=== PATIENT | female | born 1945 | race Caucasian/White ===

== ENCOUNTER 2022-03-10 17:15 | Inpatient (IN) | payer BC ==
[~2022-03-10] VITALS: Ht 160 cm; Wt 98.9 kg
[2022-03-10] MEDS ORDERED: IV NORMAL SALINE 1000 ML BAG IV ONE (17:30)
[2022-03-10 17:31] LABS: *BILIRUBIN,URIN NEGATIVE (NEGATIVE); *BLOOD, URINE NEGATIVE (NEGATIVE); *CLARITY,URINE CLEAR (CLEAR); *COLOR,URINE YELLOW (YELLOW); *KETONES,URINE NEGATIVE (NEGATIVE); LEUKOCYTE ESTERASE ,URINE TRACE (NEGATIVE); NITRITE, URINE NEGATIVE (NEGATIVE); PH,URINE 6.5 (5.0-8.0); UGLUCOSE NEGATIVE (NEGATIVE)
[2022-03-10 17:44] LABS: HEMATOCRIT 44.4 % (31.2-41.9); MEAN CORPUSCULAR HEMOGLOBIN 31.9 uug (24.7-32.8); PLATELET COUNT (AUTO) 172 K/uL (179-408)
[2022-03-10] MEDS ORDERED: predniSONE 20 MG TABLET PO ONE (17:45)
[2022-03-10] MEDS ORDERED: IPRATROPIUM BROMIDE 0.5 MG/2.5 ML NEBU NEB ONE (17:45)
[2022-03-10] MEDS ORDERED: ALBUTEROL SULFATE 2.5 MG/3 ML NEBU NEB ONE (17:45)
[2022-03-10] MEDS ORDERED: ALBUTEROL SULFATE 2.5 MG/3 ML NEBU ONE ×2 (17:47)
[2022-03-10] MEDS ORDERED: IPRATROPIUM BROMIDE 0.5 MG/2.5 ML NEBU ONE (17:47)
[2022-03-10 17:51] LABS: CARBON DIOXIDE 27 mmol/L (21-32); CHLORIDE 100 mmol/L (98-107); CREATININE 0.9 mg/dL (0.6-1.3); GLUCOSE 103 mg/dL (74-106); POTASSIUM 4.4 mmol/L (3.5-5.1); UREA NITROGEN, BLOOD 17 mg/dL (7-18)
[2022-03-10] MEDS ORDERED: CEFTRIAXONE 1 G in IV DEXTROSE 5% 50 ML IV ONE (18:00)
[2022-03-10 18:01] LABS: ALANINE AMINOTRANSFERASE 26 U/L (14-59); ALKALINE PHOSPHATASE 88 U/L (50-136); ASPARTATE AMINOTRANSFERASE 25 U/L (15-37); BILIRUBIN,DIRECT 0.2 mg/dL (0.0-0.2); BILIRUBIN,TOTAL 0.5 mg/dL (0.2-1.0); LIPASE 71 U/L (73-393); TOTAL PROTEIN, SERUM 7.4 g/dL (6.4-8.2)
[2022-03-10 18:10] LABS: ABG BASE EXCESS 0.3 mmol/L; ABG HCO3 22.7 mmol/L; ABG PCO2 31.3 mmHg (35.0-45.0); ABG PH 7.479 (7.350-7.450); ABG PO2 133.5 mmHg (75.0-100.0); ABG SITE RIGHT BRACHIAL; ABG TOTAL HEMOGLOBIN 16.1 G/dL (12.0-16.0); COHb 0.7 % (0.5-1.5); MetHb 0.2 % (0.0-1.5)
[2022-03-10] MEDS ORDERED: diphenhydrAMINE 25 MG/10 ML UDC ONE (18:14)
[2022-03-10] MEDS ORDERED: diphenhydrAMINE 50 MG/1 ML VIAL ONE (18:15)
[2022-03-10] MEDS ORDERED: DOXYCYCLINE HYCLATE IV 100 MG in IV DEXTROSE 5% 250 ML IV ONE (18:15)
[2022-03-10] MEDS ORDERED: diphenhydrAMINE 50 MG/1 ML VIAL IM ONE (18:15)
[2022-03-10] MEDS ORDERED: MORPHINE SULFATE 2 MG/1 ML DISP.SYRIN ONE (18:25)
[2022-03-10] MEDS ORDERED: MORPHINE SULFATE 2 MG/1 ML DISP.SYRIN IV ONE (18:30)
[2022-03-10 18:35] LABS: RBC,URINE 0-3 /HPF (0-3)
[2022-03-10 18:36] LABS: BACTERIA,URINE RARE /HPF (NONE SEEN); SQUAMOUS EPITHELIAL CELL,UR FEW /HPF (NONE SEEN)
[2022-03-10] MEDS ORDERED: methylPREDNISolone SOD SUCC 125 MG/2 ML VIAL IV ONE (18:45)
[2022-03-10] MEDS ORDERED: CEFTRIAXONE /D5W 50ML IVPB **ER PYXIS IV ONE (18:46)
[2022-03-10] MEDS ORDERED: methylPREDNISolone SOD SUCC 125 MG/2 ML VIAL ONE (18:46)
[2022-03-10] MEDS ORDERED: FLEET ENEMA 133 ML BOTTLE RC PRN (19:00)
[2022-03-10] MEDS ORDERED: MAGNESIUM HYDROXIDE 30 ML LIQUID UDC PO PRN (19:00)
[2022-03-10] MEDS ORDERED: ENOXAPARIN SODIUM 40 MG/0.4 ML DISP.SYRIN SQ SCH (19:00)
[2022-03-10] MEDS: levoFLOXacin 750MG/D5W 750 MG in PREMIXED 1 EACH IV SCH (19:00)
[2022-03-10] MEDS ORDERED: ACETAMINOPHEN 325 MG TABLET PO PRN (19:00)
[2022-03-10] MEDS ORDERED: ONDANSETRON 4 MG/2 ML VIAL IV PRN (19:00)
[2022-03-10] MEDS ORDERED: MAGNESIUM HYDROXIDE 30 ML LIQUID UDC PO ONE (19:00)
[2022-03-10] MEDS ORDERED: REMEDY ESSENTIAL ZINC PASTE 113 GM TP PRN (19:00)
[2022-03-10] MEDS ORDERED: DEXTROSE 50% 50 ML DISP.SYRIN IV PRN (19:00)
--- NOTE | 2022-03-10 19:05 | NUR ---
Received thorough report from SHRAVAN Sarmiento RN using SBAR method at bedside. Met pt and introduced myself, quick assessment taken. Pt has bilat 2+pitting pedal edema. Pt slightly hypotensive, but asymptomatic. [address] at 101 without ectopy. RRR. Pt appears mildly to moderately confused. Pt knows her name but does not know the name of hospital, name of the president, or the date. Pt is one medical restraints for she has a tendency to jump out of bed and start walking around. Pt is otherwise very pleasant pt albeit confused and slightly altered. VSS, PE WNL. Pt complaining of mild to mod chronic pain in bilat toes. EDMD informed. Pt denies any sob or discomfort currently. states that she is mildly dizzy and nauseated. Barf bad provided. Nausea seemed to subside.
--- NOTE | 2022-03-10 19:14 | NUR ---
Nursing SBAR given to screen handler Deandra. Patient is for CT scan, another IV antibiotic medicine and telemetry bed/nurse when all results are back.
--- NOTE | 2022-03-10 19:18 | NUR ---
Pt out of ER for CT.
[2022-03-10] MEDS ORDERED: CLOT15CR27 TP (19:32)
[2022-03-10] MEDS ORDERED: UMEC1BLS IH (19:32)
[2022-03-10] MEDS ORDERED: ZINC56.713 TP (19:32)
[2022-03-10] MEDS ORDERED: ONDA-104 PO (19:32)
[2022-03-10] MEDS ORDERED: FOLI1TAB94 PO (19:32)
[2022-03-10] MEDS ORDERED: CALCIUM C (19:32)
[2022-03-10] MEDS ORDERED: LEVO125T8 PO (19:32)
[2022-03-10] MEDS ORDERED: PRAV20TA4 PO (19:32)
[2022-03-10] MEDS ORDERED: CLOP75TA15 PO (19:32)
[2022-03-10] MEDS ORDERED: DICY20TA11 PO (19:32)
[2022-03-10] MEDS ORDERED: CHOLECALCIFEROL PO (19:32)
[2022-03-10] MEDS ORDERED: SENN-261 PO (19:32)
[2022-03-10] MEDS ORDERED: CALCIUM CARBONATE PO (19:32)
[2022-03-10] MEDS ORDERED: CARB30DR EACHEYE (19:32)
[2022-03-10] MEDS ORDERED: ASPI81TA31 PO (19:32)
[2022-03-10] MEDS ORDERED: ENAL-80 PO (19:32)
[2022-03-10] MEDS ORDERED: B COMPLEX BIOTIN FA PO (19:32)
[2022-03-10] MEDS ORDERED: ACET-2154 PO (19:32)
[2022-03-10] MEDS ORDERED: TRAZ-182 PO (19:32)
[2022-03-10] MEDS ORDERED: ALBU8.5H8 INH (19:32)
[2022-03-10] MEDS ORDERED: GABA-532 PO ×2 (19:32)
[2022-03-10] MEDS ORDERED: MEMA10TA PO (19:32)
[2022-03-10] MEDS ORDERED: LORA10TA7 PO (19:32)
--- NOTE | 2022-03-10 19:51 | NUR ---
Pt back to ER from CT.
--- NOTE | 2022-03-10 19:52 | NUR ---
Ultrasound at bedside.
[2022-03-10] MEDS ORDERED: DICYCLOMINE HCL 20 MG TABLET PO PRN (20:15)
[2022-03-10] MEDS ORDERED: CLOTRIMAZOLE 1% CREAM 30 GM TUBE TP PRN (20:15)
[2022-03-10] MEDS ORDERED: SENNOSIDES 1 TABLET PO PRN (20:15)
[2022-03-10] MEDS ORDERED: TRAZODONE 50 MG TABLET PO PRN (20:15)
[2022-03-10] MEDS ORDERED: ACETAMINOPHEN 325 MG TABLET-SA PATIENTS-PAIN ONLY PO PRN (20:15)
[2022-03-10] MEDS ORDERED: LORATADINE 10 MG TABLET PO PRN (20:15)
[2022-03-10] MEDS ORDERED: GABAPENTIN 300 MG CAPSULE ONE (20:40)
[2022-03-10] MEDS ORDERED: levoFLOXacin 750MG/D5W 150 ML IV ONE (20:41)
[2022-03-10] MEDS: DOXYCYCLINE HYCLATE 100 MG TABLET PO SCH (21:00)
[2022-03-10] MEDS: BLOOD SUGAR DIAGNOSTIC 1 EACH STRIP VI SCH (21:00)
[2022-03-10] MEDS ORDERED: GABAPENTIN 100 MG CAPSULE PO SCH (21:00)
[2022-03-10] MEDS ORDERED: methylPREDNISolone SOD SUCC 40 MG/ML VIAL IV SCH (22:00)
--- NOTE | 2022-03-10 22:46 | NUR ---
All evening meds administered in timely fashion, pt tolerated well. No s/sx of reaction noted. Pt is resting comfortably on gurney, bed dropped, rails up, all needs med, pt knows that she can simply call and ill here her. Pt appears to be alot less anxious and more relaxed since first arrized.
--- NOTE | 2022-03-10 23:16 | NUR ---
20g angio inserted into Lt AC on first attempt, without difficulty, per CTA tech. business services tech informed, he is on his way to picker packer pt for exam.
[2022-03-10] MEDS ORDERED: SWABABLE VALVE TRANSFER SET EA MC ONE (23:19)
[2022-03-10] MEDS ORDERED: IOHEXOL 350 100 ML INFUS..BTL ONE (23:19)
[2022-03-10] MEDS ORDERED: IV NORMAL SALINE 250 ML IV ONE (23:19)
--- NOTE | 2022-03-10 23:49 | NUR ---
Pt taken to bathroom via wc and voided approx 200cc clear darkish yellow output. Pt signed CTA contrast consent and taken to XR by mosaic technician for CTA. Pt was fairly stable on feet but some does need to be standing by for she is very clumsy and accident prone. Pt walked from wc to toilet without difficulty. pt currently in xr for dx exam.
[2022-03-11] MEDS ORDERED: IPRATROPIUM BROMIDE 0.5 MG/2.5 ML NEBU NEB SCH
[2022-03-11] MEDS ORDERED: ALBUTEROL SULFATE 2.5 MG/3 ML NEBU NEB SCH
--- NOTE | 2022-03-11 03:24 | NUR ---
Pt sleeping soundly, with audible snoring. vss. 79/58, 98% NC2L, 16rpm, 92bpm,
--- NOTE | 2022-03-11 04:06 | NUR ---
Brennen Zhao called to give report on pt going to [address]. Shannon jimenez Addendum: 03/11/22 at 0407 by FAMILIA Pt to be picked up by Amjaent jimenez at 0530. Pt is sleeping soundly in pos of comfort with audible snoring.
--- NOTE | 2022-03-11 04:40 | NUR ---
First call placed to tele to give report and move pt up. Accepting RN said she is currently tieing some loose end and she will call me when she is free. I will wait 20-30 min then will placed second call to tele.
[2022-03-11] MEDS ORDERED: ALBUTEROL SULFATE 2.5 MG/3 ML NEBU NEB PRN (04:45)
[2022-03-11] MEDS ORDERED: CALCIUM CARBONATE 500 MG TAB.CHEW PO PRN (05:00)
[2022-03-11] MEDS ORDERED: POLYVINYL ALCOHOL OPHT DROPS 15 ML BOTTLE OP PRN (05:00)
--- NOTE | 2022-03-11 05:07 | NUR ---
Pt is sleeping soundly with audible snoring, in pos of comfort. VSS, NAD. I am attempting to get pt transfering upstairs within the next hour or so. 78/62, 95% RA, 98bpm,16 rpm. Pt states that her BP normally runs low and that is normal for her, her PMD is aware. [facility] will be arriving shortly to tranport pt to [facility], Nurse Boston accepting. Thorough report already given to Boston RN, using SBAR method. All questions answered, Nurse Mead gave green light to tranfer pt. Currently waiting on transport to arrive. Radiology CD copied along with summury report and placed in pt folder. Pt loaded up and prepared for tranfer. VSVenancio, Pt in good spirits, very thankful for services rendered. No s/sxof distress present.
--- NOTE | 2022-03-11 05:45 | NUR ---
Pt gotten up and asisted to bathroom and voided large amt of clear yellow output. Pt escorted back to bed and placed in pos of comfort.
[2022-03-11] MEDS ORDERED: TRAZODONE 50 MG TABLET PO PRN (05:46)
[2022-03-11] MEDS ORDERED: POLYVINYL ALCOHOL OPHT DROPS 15 ML BOTTLE EACHEYE PRN (06:00)
[2022-03-11] MEDS ORDERED: CLOTRIMAZOLE 1% CREAM 30 GM TUBE TP PRN (06:00)
--- NOTE | 2022-03-11 06:24 | NUR ---
thorough Report just given to tele primer charger using sbar method. All questions answered. Given green light to transport pt to 3rd floor. Pt aaox3, in good spirits, VSS, PE wnl, NAD. No s/sxof distress present. Pt transfered to 316 without difficulty or incident. Ensured pt is settled in before departing. BOTTOM BUFFER at bedside for intake.
[2022-03-11 07:00] VITALS: BP 114/62
--- NOTE | 2022-03-11 07:00 | NUR ---
RECEIVED PATIENT FOR ADMISSION 76 YEARS OLD FEMALE BY [facility] TO ROOM 316 WITH DX OF SOB/UTI PLACED INTO BED FIXED AND MADE COMFORTABLE.PATIENT IS ALERT AND VERBALLY RESPONSIVE SHE IS FORGETFUL DENIES PAIN OR DISCOMFORTS .ON O2 AT 2L/M BY NASAL CANULA WITH NO SOB AT THIS TIME.CALL LIGHTS AND PERSONAL BELONGINGS ARE WITHIN EASY REACH WILL CONTINUE TO OBSERVE.
[2022-03-11] MEDS ORDERED: FLEET ENEMA 133 ML BOTTLE RC PRN (07:10)
[2022-03-11] MEDS: BLOOD SUGAR DIAGNOSTIC 1 EACH STRIP VI SCH ×4 (07:30→21:01)
[2022-03-11] MEDS: IPRATROPIUM BROMIDE 0.5 MG/2.5 ML NEBU NEB SCH ×3 (08:08→21:01)
[2022-03-11] MEDS: ALBUTEROL SULFATE 2.5 MG/3 ML NEBU NEB SCH ×3 (08:08→21:01)
--- NOTE | 2022-03-11 08:30 | NUR ---
PATIENT REFUSED TO HAVE BLOOD SUGAR CHECKED STATED THAT SHE IS NOT DIABETIC DR SUN CALLED AND NOTIFIED VIA A VOICE MAIL MESSAGE AWAITING FOR RETURN CALL.
[2022-03-11] MEDS: ENALAPRIL 10 MG TABLET PO SCH (09:00)
[2022-03-11] MEDS: MEMANTINE HCL 10 MG TABLET PO SCH ×2 (09:09→16:48)
[2022-03-11] MEDS: ASPIRIN 81 MG TAB.CHEW PO SCH (09:09)
[2022-03-11] MEDS: CLOPIDOGREL 75 MG TABLET PO SCH (09:09)
[2022-03-11] MEDS: CHOLECALCIFEROL 1,000 UNIT TABLET PO SCH (09:10)
[2022-03-11] MEDS: VITAMIN B COMPLEX 1 TABLET PO SCH (09:11)
[2022-03-11] MEDS: FOLIC ACID 1 MG TABLET PO SCH (09:14)
[2022-03-11] MEDS: DOXYCYCLINE HYCLATE 100 MG TABLET PO SCH ×2 (09:15→16:58)
[2022-03-11] MEDS: GABAPENTIN 100 MG CAPSULE PO SCH ×2 (09:15→16:48)
[2022-03-11] MEDS: methylPREDNISolone SOD SUCC 125 MG/2 ML VIAL IV SCH ×3 (09:17→21:02)
[2022-03-11] MEDS: LEVOTHYROXINE SODIUM 125 MCG TABLET PO SCH (09:20)
--- NOTE | 2022-03-11 10:30 | NUR ---
DR LUCIE SUN RETURNED CALL STATED THAT EVEN THOUGH PATIENT IS NOT DIABETIC SHE IS TAKING SOLU MEDROL WHICH WILL RAISE HER BLOOD SUGAR PATIENT NOTIFIED AND SHE STATED OKAY.
[2022-03-11 10:37] LABS: HEMATOCRIT 41.9 % (31.2-41.9); MEAN CORPUSCULAR HEMOGLOBIN 31.6 uug (24.7-32.8); MEAN CORPUSCULAR VOLUME 93.8 fL (75.5-95.3); PLATELET COUNT (AUTO) 135 K/uL (179-408)
[2022-03-11 10:44] LABS: MAGNESIUM 2.1 mg/dL (1.8-2.4); PHOSPHOROUS 3.5 mg/dL (2.5-4.9); POTASSIUM 3.7 mmol/L (3.5-5.1)
[2022-03-11 11:30] VITALS: BP 95/60
--- NOTE | 2022-03-11 11:30 | NUR ---
POOR VEINOUS ACESS MULTIPLE ATTEMPTS DR SUN NOTIFIED WITH ORDER TO INSERT MIDLINE AND NOTED.
[2022-03-11] MEDS: INSULIN REGULAR, HUMAN 300 UNIT/3 ML VIAL SQ PRN ×2 (12:03→16:59)
[2022-03-11] MEDS: FLUTICASONE/VILANTEROL 1 EACH BLST.W.DEV INH SCH (12:48)
[2022-03-11 16:00] VITALS: BP 104/71
--- NOTE | 2022-03-11 18:00 | NUR ---
MID LINE RIGHT UPPER ARM IS PATENT AND INTACT AT THIS TIME
--- NOTE | 2022-03-11 19:30 | NUR ---
Received pt awake, alert and orientex4. Pt in no acute distress.Pt on sinus rhythm. Iv intact. Pt on room air. . Safety and comfort provided. Will continue to monitor.
[2022-03-11] MEDS: levoFLOXacin 750MG/D5W 750 MG in PREMIXED 1 EACH IV SCH (19:54)
[2022-03-11 20:00] VITALS: BP 98/69
[2022-03-11] MEDS: ATORVASTATIN 10 MG TABLET PO SCH (20:48)
[2022-03-11] MEDS: GABAPENTIN 300 MG CAPSULE PO SCH (20:48)
[2022-03-11] MEDS: ENOXAPARIN SODIUM 40 MG/0.4 ML DISP.SYRIN SQ SCH (20:49)
[2022-03-11] MEDS: INSULIN REGULAR, HUMAN 300 UNITS/3 ML VIAL SQ PRN (20:52)
[2022-03-11] MEDS: REMEDY ESSENTIAL ZINC PASTE 113 GM TOP SCH (21:02)
[2022-03-11 22:42] VITALS: BP 98/69
[2022-03-12] VITALS: BP 101/66
[2022-03-12] MEDS: ALBUTEROL SULFATE 2.5 MG/3 ML NEBU NEB SCH ×4 (01:01→21:14)
[2022-03-12] MEDS: IPRATROPIUM BROMIDE 0.5 MG/2.5 ML NEBU NEB SCH ×4 (01:01→21:14)
[2022-03-12 04:00] VITALS: BP 101/66
[2022-03-12] MEDS: methylPREDNISolone SOD SUCC 125 MG/2 ML VIAL IV SCH ×3 (05:47→22:21)
[2022-03-12] MEDS: LEVOTHYROXINE SODIUM 125 MCG TABLET PO SCH (06:12)
[2022-03-12 06:17] LABS: MEAN CORPUSCULAR HEMOGLOBIN 32.3 uug (24.7-32.8); MEAN CORPUSCULAR VOLUME 93.6 fL (75.5-95.3); PLATELET COUNT (AUTO) 128 K/uL (179-408)
[2022-03-12 06:23] LABS: CREATININE 0.9 mg/dL (0.6-1.3); POTASSIUM 4.1 mmol/L (3.5-5.1)
--- NOTE | 2022-03-12 06:27 | NUR ---
Pt slept comfortably. Pt in no acute distress. Pt on sinus rhythm. Pt prescribed medication given and pt tolerated it well.All needs are met. Pt stable. Safety and comfort provided. Will continue to endorse to incoming nurse for continuity ofcare.
[2022-03-12] MEDS: BLOOD SUGAR DIAGNOSTIC 1 EACH STRIP VI SCH ×4 (06:39→20:38)
[2022-03-12] MEDS: INSULIN REGULAR, HUMAN 300 UNIT/3 ML VIAL SQ PRN (08:11)
[2022-03-12] MEDS: MEMANTINE HCL 10 MG TABLET PO SCH ×2 (08:12→16:35)
[2022-03-12] MEDS: GABAPENTIN 100 MG CAPSULE PO SCH ×2 (08:12→16:34)
[2022-03-12] MEDS: CHOLECALCIFEROL 1,000 UNIT TABLET PO SCH (08:12)
[2022-03-12] MEDS: ASPIRIN 81 MG TAB.CHEW PO SCH (08:12)
[2022-03-12] MEDS: FOLIC ACID 1 MG TABLET PO SCH (08:12)
[2022-03-12] MEDS: VITAMIN B COMPLEX 1 TABLET PO SCH (08:13)
[2022-03-12] MEDS: FLUTICASONE/VILANTEROL 1 EACH BLST.W.DEV INH SCH (08:13)
[2022-03-12] MEDS: ENALAPRIL 10 MG TABLET PO SCH (08:15)
[2022-03-12] MEDS: CLOPIDOGREL 75 MG TABLET PO SCH (08:42)
[2022-03-12] MEDS: DOXYCYCLINE HYCLATE 100 MG TABLET PO SCH ×2 (08:42→16:35)
[2022-03-12] MEDS: REMEDY ESSENTIAL ZINC PASTE 113 GM TOP SCH ×2 (08:44→22:24)
--- NOTE | 2022-03-12 09:00 | NUR ---
PATIENT SEEN BY THE PHYSICAL THERAPY FOR PHYSICAL THERAPEUTIC EXERCISES WITH FAIR ENDURANCE DENIES PAIN OR DISCOMFORTS REMAIN ON ATB ORDERED WITH NO ADVERSE OR ALLERGIC REACTIONS AT THIS TIME REMAIN ON O2 WITH NO SHORTNESS OF BREATH CALL LIGHTS AND PERSONAL BELONGINGS ARE WITHIN EASY REACH WILL CONTINUE TO OBSERVE.
[2022-03-12 13:10] VITALS: BP 102/58
[2022-03-12 16:41] VITALS: BP 113/74
--- NOTE | 2022-03-12 18:00 | NUR ---
RESTING GETS DISORIENTED A LOT BUT EASILY REDIRECTABLE ABLE TO MAKE NEEDS KNOWN REMAIN ON O2 WITH NO SOB AT THIS TIME WILL CONTINUE TO OBSERVE.
--- NOTE | 2022-03-12 19:40 | NUR ---
RECEIVED PATIENT IN BED, BREATHING TREATMENT DONE BY RT. AWAKE, ALERT, ORIENTED NOTED TO BE FORGETFUL. IV ACCESS AT MELISSA ML, PATENT AND INTACT. PATIENT DENIES SOB, CHEST PAIN OR DIZZINESS AT THIS TIME. SAFETY PRECAUTIONS INITIATED. CLOSELY MONITORED.
[2022-03-12] MEDS: levoFLOXacin 750MG/D5W 750 MG in PREMIXED 1 EACH IV SCH (19:42)
[2022-03-12 20:16] VITALS: BP 118/87
[2022-03-12] MEDS: GABAPENTIN 300 MG CAPSULE PO SCH (20:33)
[2022-03-12] MEDS: ATORVASTATIN 10 MG TABLET PO SCH (20:33)
[2022-03-12] MEDS: ENOXAPARIN SODIUM 40 MG/0.4 ML DISP.SYRIN SQ SCH (20:48)
[2022-03-12] MEDS: INSULIN REGULAR, HUMAN 300 UNITS/3 ML VIAL SQ PRN (20:49)
--- NOTE | 2022-03-12 22:45 | NUR ---
URINE COLLECTED VIA STRAIGHT CATHETERIZATION, SENT TO LAB.
[2022-03-13] MEDS: IPRATROPIUM BROMIDE 0.5 MG/2.5 ML NEBU NEB SCH ×3 (01:30→13:30)
[2022-03-13] MEDS: ALBUTEROL SULFATE 2.5 MG/3 ML NEBU NEB SCH ×3 (01:30→13:30)
[2022-03-13 04:29] VITALS: BP 117/59
[2022-03-13] MEDS: BLOOD SUGAR DIAGNOSTIC 1 EACH STRIP VI SCH ×3 (06:35→16:30)
[2022-03-13] MEDS: LEVOTHYROXINE SODIUM 125 MCG TABLET PO SCH (06:35)
[2022-03-13] MEDS: methylPREDNISolone SOD SUCC 125 MG/2 ML VIAL IV SCH ×2 (06:35→13:35)
--- NOTE | 2022-03-13 06:45 | NUR ---
PATIENT SLEPT INTERMITTENTLY THROUGH THE NIGHT, WITH EPISODES OF FORGETFULNESS AND CONFUSION. PT REQUESTED FOR SLEEPING MEDICATION FOR INSOMNIA, TRAZODONE GIVEN ORDERED. PATIENT PULLED OUT MIDLINE, REINSERTED NEW IV ACCESS AT LEFT HAND GAUGE 22. WOUND PHOTOS TAKEN AND ATTACHED TO CHART. SAFETY PRECAUTIONS MAINTAINED. ENDORSED TO DAY SHIFT.
[2022-03-13 06:57] LABS: HEMATOCRIT 36.7 % (31.2-41.9); MEAN CORPUSCULAR HEMOGLOBIN 31.9 uug (24.7-32.8); MEAN CORPUSCULAR VOLUME 92.9 fL (75.5-95.3); PLATELET COUNT (AUTO) 129 K/uL (179-408)
[2022-03-13 07:11] LABS: CREATININE 0.8 mg/dL (0.6-1.3); MAGNESIUM 2.3 mg/dL (1.8-2.4); PHOSPHOROUS 2.5 mg/dL (2.5-4.9); POTASSIUM 4.4 mmol/L (3.5-5.1)
--- NOTE | 2022-03-13 07:15 | NUR ---
PATIENT SEEN STANDING IN THE HALLWAY ALL DRESSED UP IN HER STREET CLOTHES VERY CONFUSED DISORIENTED STATED THAT SHE JUST CAME IN HERE AND WAITING AND THAT IT WAS HER TURN BUT NO ONE IS ATTENDING TO HER YET ATTEMPTED TO ORIENT PATIENT TO NO AVAIL STILL INSISTING THAT SHE MISSED HER TURN ASSISTED HER BACK TO HER ROOM REFUSED TO HAVE O2 REAPPLIED ORIENTED AND REORIENTED PATIENT MUCH POSSIBLE WILL CONTINUE TO OBSERVE AND PROVIDE SAFETY.
[2022-03-13] MEDS: DOXYCYCLINE HYCLATE 100 MG TABLET PO SCH ×2 (09:12→16:47)
[2022-03-13] MEDS: CLOPIDOGREL 75 MG TABLET PO SCH (09:12)
[2022-03-13] MEDS: GABAPENTIN 100 MG CAPSULE PO SCH ×2 (09:12→16:46)
[2022-03-13] MEDS: FOLIC ACID 1 MG TABLET PO SCH (09:12)
[2022-03-13] MEDS: MEMANTINE HCL 10 MG TABLET PO SCH ×2 (09:12→16:46)
[2022-03-13] MEDS: CHOLECALCIFEROL 1,000 UNIT TABLET PO SCH (09:12)
[2022-03-13] MEDS: ASPIRIN 81 MG TAB.CHEW PO SCH (09:12)
[2022-03-13] MEDS: VITAMIN B COMPLEX 1 TABLET PO SCH (09:13)
[2022-03-13] MEDS: FLUTICASONE/VILANTEROL 1 EACH BLST.W.DEV INH SCH (09:13)
[2022-03-13] MEDS: REMEDY ESSENTIAL ZINC PASTE 113 GM TOP SCH (09:14)
[2022-03-13] MEDS: ENALAPRIL 10 MG TABLET PO SCH (09:44)
[2022-03-13 11:55] VITALS: BP 169/72
--- NOTE | 2022-03-13 12:42 | NUR ---
SERGEI HERE SEEN PATIENT STATED D/C PLANNING AWAITING FOR SENSITIVITIES OF THE URINE C/S PATIENT AWARE MORE ALERT BUT IS STILL CONFUSED.
--- NOTE | 2022-03-13 13:10 | NUR ---
PATIENT REMAINS CONFUSED DISORIENTED ASKING SAME QUESTIONS OVER AND OVER AGAIN BLOOD PRESSURE AT THIS TIME IS 179/87 CALLED HER PROVIDER BLANCHE AND LEFT A MESSAGE IN HER VOICE MAIL
[2022-03-13] MEDS ORDERED: hydrALAZINE HCL 20 MG/1 ML VIAL IV PRN (13:15)
--- NOTE | 2022-03-13 13:16 | NUR ---
NEW ORDERS RECEIVED FROM SERGEI AND NOTED.
[2022-03-13] MEDS ORDERED: DOXY100T2 PO (13:19)
[2022-03-13] MEDS ORDERED: METH4TAB3 PO (13:19)
[2022-03-13] MEDS ORDERED: GABA300C PO (13:19)
--- NOTE | 2022-03-13 13:20 | NUR ---
NOTED THAT JESSICA ORDER IS FOR IV HYDRALAZINE UNABLE TO GIVE HYDRALAZINE IV SINCE PATIENT IS MED SURG STATUS SERGEI AWARE AWAITING FOR NEW ORDERS.
--- NOTE | 2022-03-13 13:35 | NUR ---
CALL RECEIVED FROM SERGEI FOR CLONIDINE 0.2 MG ONE TIME ORDER AND NOTED.
[2022-03-13] MEDS ORDERED: CLONIDINE HCL 0.2 MG TABLET PO STA (13:37)
--- NOTE | 2022-03-13 13:45 | NUR ---
CLONIDINE 0.2 MG GIVEN ORDERED AT THIS TIME
--- NOTE | 2022-03-13 15:45 | NUR ---
BLOOD PRESSURE IS STILL HIGH AT 163/71 PULSE IS 86 PATIENT CONTINUES TO BE AGITATED WALKING UP AND DOWN BACK AND FORTH VERY CONFUSED ASSISTED BACK TO HER ROOM AND PATIENT ENCOURAGED TO LAY DOWN FOR A WHILE REASSURED HER THAT THE AMBULANCE IS ON THE WAY TO PICK HER UP BUT IF HER BLOOD PRESSURE IS HIGH THEY WILL NOT TAKE HER SO I FINALLY CONVINCED HER TO LAY DOWN IN HER BED WILL RECHECK HER BLOOD PRESSURE IN A LITTLE WHILE
[2022-03-13 16:03] VITALS: BP 163/71
--- NOTE | 2022-03-13 16:15 | NUR ---
BLOOD PRESSURE AT THIS TIME IS 130/90 WILL CONTINUE WITH THE DISCHARGE PER THE CAPACITY MANAGER THE AMBULANCE WILL PICK PATIENT UP AT 1700 TODAY
--- NOTE | 2022-03-13 17:00 | NUR ---
CALLED [facility] IN [place] AND SPOKE WITH RODRICK TERRY RE PATIENT IS BEING DISCHARGED AND DISCHARGE INSTRUCTIONS INFORMED HER THAT NEW MEDICATIONS WAS SENT TO PATIENTS PRIVATE PHARMACY AND SHE STATED THAT THEY ALREADY NOTIFIED HER OF THE NEW MEDICATIONS.
--- NOTE | 2022-03-13 17:45 | NUR ---
PATIENT DISCHARGED [facility]ICKED UP [facility] IN SATISFACTORY CONDITION WITH DISCHARGE INSTRUCTIONS AND ALL HER PERSONAL BELONGINGS SHE REMAINS CONFUSED AND DISORIENTED BUT IS REDIRECTABLE HAPPY TO BE LEAVING NOT IN DISTRESS AT THIS TIME
== END 2022-03-13 17:45 | DRG 871 ==
LOC: ER 17:22 → TELE3 18:00 → MEDSURG3 03-12 08:45
PROVIDERS: ADMIT Nurse Practitioner Acute Care; ATTEND Registered Nurse
PROC: 05HB33Z Insertion of Infusion Device into Right Basilic Vein, Percutaneous Approach (ICD-10-PCS; principal; 2022-03-11)
PROC: 05H533Z Insertion of Infusion Device into Right Subclavian Vein, Percutaneous Approach (ICD-10-PCS; 2022-03-11)
PROC: B546ZZA Ultrasonography of Right Subclavian Vein, Guidance (ICD-10-PCS; 2022-03-11)
DX: A41.9 Sepsis, unspecified organism (principal); J96.01 Acute respiratory failure with hypoxia; J15.9 Unspecified bacterial pneumonia; J44.1 Chronic obstructive pulmonary disease with (acute) exacerbation; J44.0 Chronic obstructive pulmonary disease with (acute) lower respiratory infection; N39.0 Urinary tract infection, site not specified; L03.115 Cellulitis of right lower limb; K56.7 Ileus, unspecified; Z20.822 Contact with and (suspected) exposure to COVID-19; E66.9 Obesity, unspecified; E78.5 Hyperlipidemia, unspecified; E03.9 Hypothyroidism, unspecified; Z87.891 Personal history of nicotine dependence; I10 Essential (primary) hypertension; F03.90 Unspecified dementia, unspecified severity, without behavioral disturbance, psychotic disturbance, mood disturbance, and anxiety; Z68.38 Body mass index [BMI] 38.0-38.9, adult; Z88.0 Allergy status to penicillin; Z88.2 Allergy status to sulfonamides; B96.89 Other specified bacterial agents as the cause of diseases classified elsewhere
CPT/HCPCS: 36415; 36600; 70450; 71045; 71250; 71275; 83605; 83690; 83735; 84100; 84484; 85025; 85730; 87040; 87086; 93005; 94640; 94664; 97161; A4663; C1758; G0378; J0696; J1200; J1650; J1815; J1956; J2270; J2920; J2930; J3590; J7040; Q0163; Q9967